=== PATIENT | male | born 1995 | race Caucasian/White ===

== ENCOUNTER 2017-06-27 20:31 | Emergency (ER) | payer SELFPAY ==
[~2017-06-27] VITALS: Ht 170.2 cm; Wt 91.3 kg
[2017-06-27] MEDS ORDERED: IBUPROFEN 800MG TABLET PO ONE (22:45)
[2017-06-28 00:35] VITALS: BP 122/75
== END 2017-06-28 00:53 | disposition home or self-care (01) ==
LOC: ER 20:31
DX: S90.30XA Contusion of unspecified foot, initial encounter (principal); V43.52XA Car driver injured in collision with other type car in traffic accident, initial encounter; Y92.410 Unspecified street and highway as the place of occurrence of the external cause
CPT/HCPCS: 73630; 99284